=== PATIENT | female | born 1965 | race Caucasian/White ===

== ENCOUNTER 2021-05-24 11:40 | Inpatient (IN) | payer BC, OTHER ==
[~2021-05-24] VITALS: Ht 170.2 cm; Wt 104.3 kg
[~2021-05-24 11:40] MED LIST: AMITRIPTYLINE H50 MG PO; ELAVIL25 MG PO; TIZANIDINE PO; TYLENOL WITH C1 EACH PO; Z.0.KLONOPIN2 MG PO; Z.0.LUNESTA3 MG PO; Z.0.NORCO 10-325 T1; Z.0.PRAVACHOL20 MG PO; Z.1.AMOXICILLIN500 M PO
[2021-05-24] MEDS ORDERED: HYDROCODON-ACE1 EAC9 PO (12:32)
[2021-05-24] MEDS ORDERED: TRAZODONE HCL100 MG PO (12:32)
[2021-05-24] MEDS ORDERED: BUSPIRONE HCL5 GM (12:32)
[2021-05-24] MEDS ORDERED: NEURONTIN400 MG PO (12:32)
[2021-05-24] MEDS ORDERED: NITROFURANTOIN100 MG PO (12:32)
[2021-05-24] MEDS ORDERED: ZETIA10 MG PO (12:32)
[2021-05-24] MEDS ORDERED: ARIMIDEX1 MG PO (12:35)
[2021-05-24] MEDS ORDERED: SODIUM CHLORIDE 0.9% 1000ML 1,000 ML IV STA (12:37)
[2021-05-24 12:50] LABS: BASOPHILS % 0.1 % (0.0-1.0); EOSINOPHILS # (AUTO) 0.1 (0.0-0.4); EOSINOPHILS % 0.9 % (0.0-6.0); LYMPHOCYTES # (AUTO) 1.2 (1.0-3.2); LYMPHOCYTES % 13.1 % (18.0-39.1); MEAN CORPUSCULAR HEMOGLOBIN 30.6 pg (28-32); MEAN CORPUSCULAR HGB CONC 33.3 g/dL (31-35); MEAN CORPUSCULAR VOLUME 91.8 fL (81-99); MONOCYTES # (AUTO) 0.5 (0.2-0.8); MONOCYTES % 5.2 % (4.4-11.3); NEUTROPHILS # (AUTO) 7.2 (2.1-6.9); NEUTROPHILS % 80.3 % (38.7-80.0); PLATELET COUNT 166 x10e3/uL (140-360); RED BLOOD COUNT 3.92 x10e6/uL (3.6-5.1); RED CELL DISTRIBUTION WIDTH 13.2 % (11.7-14.4)
[2021-05-24] MEDS ORDERED: CEFTRIAXONE 1 GM VIAL ONE (12:59)
[2021-05-24] MEDS ORDERED: LIDOCAINE HCL 2% LOCAL 20 ML VIAL ONE (12:59)
[2021-05-24 13:05] LABS: ALBUMIN 3.3 g/dL (3.5-5.0); ALBUMIN/GLOBULIN RATIO 0.8 (0.8-2.0); ANION GAP 13.5 mmol/L (8-16); CALCIUM 10.5 mg/dL (8.4-10.2); CREATININE, SERUM 0.82 mg/dL (0.57-1.11); MAGNESIUM 1.6 MG/DL (1.3-2.1); POTASSIUM 3.5 mmol/L (3.5-5.1)
[2021-05-24] MEDS: PIPERACILLIN/TAZOBACTAM 3.375 GM in SODIUM CHLORIDE 0.9% 50ML 50 ML IV SCH ×2 (14:26→19:39)
[2021-05-24 14:35] LABS: CLARITY,URINE SL CLOUDY (CLEAR); COLOR,URINE STRAW (YELLOW)
[2021-05-24 14:36] LABS: KETONES,URINE NEGATIVE (NEGATIVE); LEUKOCYTE ESTERASE ,URINE TRACE (NEGATIVE); NITRITE,URINE NEGATIVE (NEGATIVE); PROTEIN,URINE DIPSTICK NEGATIVE (NEGATIVE); URINE UROBILINOGEN 0.2 mg/dL (0.2 - 1)
[2021-05-24 14:50] LABS: BACTERIA,URINE MODERATE /HPF; EPITHELIAL CELLS,URINE MODERATE /LPF; RBC,URINE 0-5 /HPF (0-5); WBC,URINE (MAN) 0-5 /HPF (0-5)
[2021-05-24 15:36] LABS: AMPHETAMINES SCREEN,URINE NEGATIVE (NEGATIVE); BENZODIAZEPINES SCREEN,URINE NEGATIVE (NEGATIVE); PHENCYCLIDINE SCREEN,URINE NEGATIVE (NEGATIVE)
[2021-05-24] MEDS ORDERED: DEXTROSE 50% SYRINGE 50 ML IV PRN (15:45)
[2021-05-24] MEDS ORDERED: ALBUTEROL SULF 0.083% NEB SOLN 3 ML NEB NEB PRN (15:45)
[2021-05-24] MEDS: SODIUM CHLORIDE 0.9% 1000ML 1,000 ML IV SCH ×2 (16:35→19:39)
[2021-05-24] MEDS: INSULIN LISPRO 100 UNIT/1 ML 3ML VIAL SQ SCH ×2 (16:54→20:17)
[2021-05-24 16:56] LABS: FREE THYROXINE INDEX 1.9513 (1.4-3.8); THYROID STIMULATING HORMONE 0.033 uIU/mL (0.350-4.940)
[2021-05-24 17:15] LABS: CREATINE KINASE MB 0.9 ng/mL (0-5.0)
[2021-05-24 17:47] VITALS: BP 140/78
[2021-05-24 19:50] VITALS: BP 152/82
[2021-05-24 21:22] LABS: CREATINE KINASE MB 1.3 ng/mL (0-5.0)
[2021-05-24] MEDS ORDERED: NITROFURANTOIN MACROCRYSTALS 100 MG CAP PO SCH (21:30)
[2021-05-24] MEDS ORDERED: TRAZODONE HCL 50 MG TAB PO SCH (21:30)
[2021-05-25] VITALS (9 sets, daily range): BP systolic 91–163; BP diastolic 61–99
[2021-05-25] MEDS: PIPERACILLIN/TAZOBACTAM 3.375 GM in SODIUM CHLORIDE 0.9% 50ML 50 ML IV SCH ×4 (01:29→22:26)
[2021-05-25 06:12] LABS: BASOPHILS % 0.3 % (0.0-1.0); EOSINOPHILS # (AUTO) 0.1 (0.0-0.4); EOSINOPHILS % 0.8 % (0.0-6.0); HEMATOCRIT 34.3 % (34.2-44.1); HEMOGLOBIN 11.4 g/dL (12.0-16.0); LYMPHOCYTES # (AUTO) 1.5 (1.0-3.2); LYMPHOCYTES % 19.3 % (18.0-39.1); MEAN CORPUSCULAR HEMOGLOBIN 30.4 pg (28-32); MEAN CORPUSCULAR HGB CONC 33.2 g/dL (31-35); MEAN CORPUSCULAR VOLUME 91.5 fL (81-99); MONOCYTES # (AUTO) 0.4 (0.2-0.8); MONOCYTES % 5.6 % (4.4-11.3); NEUTROPHILS # (AUTO) 5.6 (2.1-6.9); NEUTROPHILS % 73.6 % (38.7-80.0); PLATELET COUNT 179 x10e3/uL (140-360); RED BLOOD COUNT 3.75 x10e6/uL (3.6-5.1); RED CELL DISTRIBUTION WIDTH 13.1 % (11.7-14.4)
[2021-05-25 06:42] LABS: ALBUMIN/GLOBULIN RATIO 0.8 (0.8-2.0); ANION GAP 12.1 mmol/L (8-16); CALCIUM 9.9 mg/dL (8.4-10.2); CREATININE, SERUM 0.78 mg/dL (0.57-1.11); POTASSIUM 3.1 mmol/L (3.5-5.1)
[2021-05-25 07:10] LABS: CREATINE KINASE MB 0.8 ng/mL (0-5.0)
[2021-05-25] MEDS: INSULIN LISPRO 100 UNIT/1 ML 3ML VIAL SQ SCH ×4 (07:30→21:00)
[2021-05-25] MEDS ORDERED: POTASSIUM CHLORIDE 20 MEQ TAB CR PO ONE (09:45)
[2021-05-25] MEDS: ANASTROZOLE 1 MG TAB PO SCH (10:59)
[2021-05-25] MEDS: TIZANIDINE HCL 4 MG TAB PO SCH ×3 (11:00→22:26)
[2021-05-25] MEDS: GABAPENTIN 400 MG CAP PO SCH ×3 (11:00→21:00)
[2021-05-25] MEDS: EZETIMIBE 10 MG TAB PO SCH (11:01)
[2021-05-25] MEDS: HYDROCODONE/APAP 10MG-325MG TAB PO PRN (11:15)
[2021-05-25] MEDS: SODIUM CHLORIDE 0.9% 1000ML 1,000 ML IV SCH ×2 (11:45→21:45)
[2021-05-25 14:59] LABS: FREE T4 (FREE THYROXINE) 0.88 ng/dL (0.8-1.8); THYROID STIMULATING HORMONE 0.028 uIU/mL (0.350-4.940)
[2021-05-25] MEDS ORDERED: KETOROLAC TROMETHAMINE 30 MG/ML VIAL IV STA (16:41)
[2021-05-25] MEDS ORDERED: VENLAFAXINE HCL75 M2 PO (18:26)
[2021-05-25] MEDS ORDERED: METOPROLOL SUCC25 MG PO (18:26)
[2021-05-25] MEDS ORDERED: MOBIC15 MG PO (18:26)
[2021-05-25] MEDS: TRAZODONE HCL 50 MG TAB PO SCH (21:00)
[2021-05-25] MEDS: AMITRIPTYLINE HCL 25 MG TAB PO SCH (21:00)
[2021-05-26] VITALS (7 sets, daily range): BP systolic 124–171; BP diastolic 75–111
[2021-05-26] MEDS: PIPERACILLIN/TAZOBACTAM 3.375 GM in SODIUM CHLORIDE 0.9% 50ML 50 ML IV SCH ×5 (02:17→22:14)
[2021-05-26] MEDS: SODIUM CHLORIDE 0.9% 1000ML 1,000 ML IV SCH (07:04)
[2021-05-26] MEDS: INSULIN LISPRO 100 UNIT/1 ML 3ML VIAL SQ SCH ×4 (07:30→21:00)
[2021-05-26] MEDS: ANASTROZOLE 1 MG TAB PO SCH (09:31)
[2021-05-26] MEDS: GABAPENTIN 400 MG CAP PO SCH ×3 (09:31→22:06)
[2021-05-26] MEDS: TIZANIDINE HCL 4 MG TAB PO SCH ×3 (09:32→22:11)
[2021-05-26] MEDS: EZETIMIBE 10 MG TAB PO SCH (09:32)
[2021-05-26] MEDS: METOPROLOL SUCCINATE 25 MG TAB XL PO SCH (12:00)
[2021-05-26] MEDS: METFORMIN HCL 500 MG TAB PO SCH (17:17)
[2021-05-26] MEDS: HYDROCODONE/APAP 10MG-325MG TAB PO PRN (18:09)
[2021-05-26] MEDS: AMITRIPTYLINE HCL 25 MG TAB PO SCH (22:06)
[2021-05-26] MEDS: TRAZODONE HCL 50 MG TAB PO SCH (22:06)
[2021-05-27] VITALS (8 sets, daily range): BP systolic 131–160; BP diastolic 70–102
[2021-05-27] MEDS: CLONAZEPAM 0.5 MG TAB PO SCH ×3 (00:10→17:20)
[2021-05-27] MEDS: HYDROCODONE/APAP 10MG-325MG TAB PO PRN ×4 (00:10→20:00)
[2021-05-27] MEDS: PIPERACILLIN/TAZOBACTAM 3.375 GM in SODIUM CHLORIDE 0.9% 50ML 50 ML IV SCH ×4 (03:20→19:49)
[2021-05-27] MEDS: INSULIN LISPRO 100 UNIT/1 ML 3ML VIAL SQ SCH ×4 (07:30→19:49)
[2021-05-27] MEDS: METFORMIN HCL 500 MG TAB PO SCH ×2 (08:32→17:20)
[2021-05-27] MEDS: ANASTROZOLE 1 MG TAB PO SCH (08:32)
[2021-05-27] MEDS: GABAPENTIN 400 MG CAP PO SCH ×3 (08:32→20:01)
[2021-05-27] MEDS: METOPROLOL SUCCINATE 25 MG TAB XL PO SCH (08:33)
[2021-05-27] MEDS: EZETIMIBE 10 MG TAB PO SCH (08:33)
[2021-05-27] MEDS: TIZANIDINE HCL 4 MG TAB PO SCH ×3 (08:33→20:01)
[2021-05-27] MEDS: ONDANSETRON HCL INJ 2MG/ML 2ML 2 MG/ML VIAL IV PRN (19:49)
[2021-05-27] MEDS: AMITRIPTYLINE HCL 25 MG TAB PO SCH (20:01)
[2021-05-27] MEDS: TRAZODONE HCL 50 MG TAB PO SCH (20:01)
[2021-05-28 00:16] VITALS: BP 130/87
[2021-05-28] MEDS: PIPERACILLIN/TAZOBACTAM 3.375 GM in SODIUM CHLORIDE 0.9% 50ML 50 ML IV SCH ×2 (02:00→08:27)
[2021-05-28] MEDS: HYDROCODONE/APAP 10MG-325MG TAB PO PRN (03:58)
[2021-05-28 04:29] VITALS: BP 153/94
[2021-05-28 05:04] LABS: BASOPHILS % 0.4 % (0.0-1.0); EOSINOPHILS # (AUTO) 0.1 (0.0-0.4); HEMATOCRIT 37.1 % (34.2-44.1); HEMOGLOBIN 12.2 g/dL (12.0-16.0); LYMPHOCYTES # (AUTO) 1.8 (1.0-3.2); LYMPHOCYTES % 38.1 % (18.0-39.1); MEAN CORPUSCULAR HEMOGLOBIN 30.5 pg (28-32); MEAN CORPUSCULAR HGB CONC 32.9 g/dL (31-35); MEAN CORPUSCULAR VOLUME 92.8 fL (81-99); MONOCYTES # (AUTO) 0.4 (0.2-0.8); MONOCYTES % 8.3 % (4.4-11.3); NEUTROPHILS # (AUTO) 2.3 (2.1-6.9); NEUTROPHILS % 49.6 % (38.7-80.0); PLATELET COUNT 197 x10e3/uL (140-360); RED CELL DISTRIBUTION WIDTH 13.1 % (11.7-14.4)
[2021-05-28] MEDS ORDERED: MORPHINE SULFATE INJ 2 MG/ML SYR IV STA (05:15)
[2021-05-28] MEDS: ONDANSETRON HCL INJ 2MG/ML 2ML 2 MG/ML VIAL IV PRN (05:28)
[2021-05-28 05:33] LABS: ANION GAP 12.5 mmol/L (8-16); CREATININE, SERUM 0.81 mg/dL (0.57-1.11); POTASSIUM 3.5 mmol/L (3.5-5.1)
[2021-05-28] MEDS: INSULIN LISPRO 100 UNIT/1 ML 3ML VIAL SQ SCH (07:30)
[2021-05-28 07:39] VITALS: BP 153/94
[2021-05-28 07:52] VITALS: BP 139/86
[2021-05-28] MEDS: METFORMIN HCL 500 MG TAB PO SCH (08:30)
[2021-05-28] MEDS: ANASTROZOLE 1 MG TAB PO SCH (08:30)
[2021-05-28] MEDS: CLONAZEPAM 0.5 MG TAB PO SCH (08:30)
[2021-05-28] MEDS: METOPROLOL SUCCINATE 25 MG TAB XL PO SCH (08:30)
[2021-05-28] MEDS: GABAPENTIN 400 MG CAP PO SCH (08:30)
[2021-05-28] MEDS: TIZANIDINE HCL 4 MG TAB PO SCH (08:31)
[2021-05-28] MEDS: EZETIMIBE 10 MG TAB PO SCH (08:31)
[2021-05-28] MEDS ORDERED: KETOROLAC TROMETHAMINE 30 MG/ML VIAL IV ONE (09:15)
== END 2021-05-28 11:37 | disposition home or self-care (01) | DRG 178 ==
LOC: ER 12:24 → ERHOLD 15:39 → MED/SURG3 17:34
PROVIDERS: ADMIT Internal Medicine; ATTEND Internal Medicine
DX: J69.0 Pneumonitis due to inhalation of food and vomit (principal); G91.0 Communicating hydrocephalus; F32.9 Major depressive disorder, single episode, unspecified; M79.7 Fibromyalgia; G89.29 Other chronic pain; E78.5 Hyperlipidemia, unspecified; I10 Essential (primary) hypertension; E04.1 Nontoxic single thyroid nodule; F17.200 Nicotine dependence, unspecified, uncomplicated; Z85.3 Personal history of malignant neoplasm of breast; G62.9 Polyneuropathy, unspecified; Z20.822 Contact with and (suspected) exposure to COVID-19; E11.65 Type 2 diabetes mellitus with hyperglycemia
CPT/HCPCS: 36415; 70450; 70490; 70551; 71045; 71250; 72125; 76536; 80048; 80053; 80307; 81001; 82550; 82553; 82948; 83036; 83605; 83735; 84436; 84439; 84443; 84479; 84484; 85025; 87040; 87086; 93005; 97139; 99284; J0456; J0696; J1885; J2001; J2270; J2405; J2543; J7030; J7050; U0002